=== PATIENT | male | born 1995 | race African-American/Black ===

== ENCOUNTER 2024-01-18 21:02 | Emergency (ER) | payer MEDICAID, OTHER ==
[~2024-01-18] VITALS: Ht 170.2 cm; Wt 64.0 kg
[~2024-01-18 21:02] MED LIST: IBUP-2029 MT; T3 PO
[2024-01-18 21:10] VITALS: TEMP 98.2; O2SAT 97
[2024-01-19 01:26] VITALS: BP 97/64; PULSE 65; RESP 14; O2SAT 99
[2024-01-19] MEDS: ACETAMINOPHEN 325MG TABLET PO ONE (01:49)
[2024-01-19] MEDS ORDERED: ACET-2708 MT (02:27)
== END 2024-01-19 04:25 | disposition home or self-care (01) ==
LOC: ER 21:02
DX: G44.209 Tension-type headache, unspecified, not intractable (principal); F19.90 Other psychoactive substance use, unspecified, uncomplicated; Z59.00 Homelessness unspecified
CPT/HCPCS: 99284